=== PATIENT | male | born 1970 | race Caucasian/White ===

== ENCOUNTER 2020-12-01 09:26 | Emergency (ER) | payer OTHER ==
[~2020-12-01] VITALS: Ht 175.3 cm; Wt 140.9 kg
[2020-12-01] MEDS ORDERED: ondansetron/PF 4mg/2ml inj IV ONE (09:35)
[2020-12-01] MEDS ORDERED: fentaNYL/PF 50MCG/1 ML 2ML syringe IV ONE (09:35)
[2020-12-01] MEDS ORDERED: normal saline 1000ML IV soln IVB ONE (09:35)
[2020-12-01] MEDS ORDERED: iohexol 300mg/ml 100ml inj. ONE (09:47)
[2020-12-01 10:05] VITALS: BP 202/129
[2020-12-01 10:31] LABS: BASOPHILS % (AUTO) 0.4 % (0-1); EOSINOPHILS # (AUTO) 0.1 X10'3 (0-0.9); EOSINOPHILS % (AUTO) 0.8 % (0-6); HEMATOCRIT 43.6 % (42.0-52.0); HEMOGLOBIN 14.9 g/dl (14.0-17.9); LYMPHOCYTES # (AUTO) 1.4 X10'3 (1.1-4.8); LYMPHOCYTES % (AUTO) 16.9 % (21-51); MEAN CORPUSCULAR HEMOGLOBIN 28.6 PG (27.0-31.0); MEAN CORPUSCULAR HGB CONC 34.2 g/dL (33.0-36.5); MEAN CORPUSCULAR VOLUME 83.6 FL (78-98); MEAN PLATELET VOLUME 9.9 FL (7.4-10.4); MONOCYTES # (AUTO) 0.4 X10'3 (0-0.9); NEUTROPHILS # (AUTO) 6.4 X10'3 (1.8-7.7); NEUTROPHILS % (AUTO) 76.9 % (42-75); PLATELET COUNT 174 X10'3 (140-440); RED BLOOD COUNT 5.21 X10'6 (4.70-6.10); RED CELL DISTRIBUTION WIDTH 13.5 % (11.5-14.5); WHITE BLOOD COUNT 8.3 X10'3 (4.5-11.0)
[2020-12-01 10:42] LABS: PARTIAL THROMBOPLASTIN TIME 30 SECONDS (22-32)
[2020-12-01 10:49] LABS: ALANINE AMINOTRANSFERASE 72 U/L (12-78); ALBUMIN 4.1 G/DL (3.4-5.0); ALBUMIN/GLOBULIN RATIO 1.2 (1.1-1.5); ALKALINE PHOSPHATASE 89 IU/L (46-116); ANION GAP 11 (8-16); ASPARTATE AMINO TRANSFERASE 39 U/L (10-37); BILIRUBIN,TOTAL 0.4 MG/DL (0.1-1.0); BLOOD UREA NITROGEN 13 MG/DL (7-18); CALCIUM 8.2 MG/DL (8.5-10.1); CHLORIDE 105 MMOL/L (99-107); CREATININE 0.93 MG/DL (0.60-1.10); GLUCOSE 122 MG/DL (70-104); POTASSIUM 3.8 MMOL/L (3.5-5.1); SODIUM 141 MMOL/L (135-145); TOTAL CARBON DIOXIDE 24.9 MMOL/L (24-32); TOTAL PROTEIN 7.5 G/DL (6.4-8.2); eGFR 87 ML/MIN
[2020-12-01 10:58] LABS: CKMB RELATIVE INDEX 2.6 RATIO (0-2.5); CREATINE KINASE 178 U/L (39-308); TROPONIN I < 0.04 NG/ML (0.0-0.05)
[2020-12-01] MEDS ORDERED: ONDA4TAB6 PO (11:09)
[2020-12-01] MEDS ORDERED: HYDR-3964 PO (11:09)
== END 2020-12-01 11:19 | disposition home or self-care (01) ==
LOC: ER 09:27
DX: S22.31XA Fracture of one rib, right side, initial encounter for closed fracture (principal); K80.20 Calculus of gallbladder without cholecystitis without obstruction; R10.9 Unspecified abdominal pain; I10 Essential (primary) hypertension; Z79.899 Other long term (current) drug therapy; W11.XXXA Fall on and from ladder, initial encounter; Y93.89 Activity, other specified; Y92.89 Other specified places as the place of occurrence of the external cause; Y99.8 Other external cause status
CPT/HCPCS: 36415; 71260; 74177; 80053; 82550; 82553; 84484; 85025; 85610; 85730; 86885; 86900; 86901; 96361; 96374; 96375; 99285; J2405; J3010; J7030; Q9967